=== PATIENT | male | born 1950 ===

== ENCOUNTER 2021-02-27 08:02 | Observation (INO) ==
[2021-02-27] MEDS ORDERED: Lactated Ringers 1000 ml BAG 1,000 ML IV ONE (08:59)
[2021-02-27 09:08] LABS: ABS Eosinophils 0.2 10^3/ul (0-0.6); ABS Lymphocytes 1.5 10^3/ul (1.0-4.8); ABS Monocytes 0.8 10^3/ul (0-0.8); ABS Neutrophils 5.6 10^3/ul (1.5-7.7); Eosinophil % 2.4 %; Hematocrit 28 % (42-52); Hemoglobin 9.5 g/dL (14.0-18.0); Lymphocyte % 18.3 %; Mean Corpuscular HGB Conc 34 g/dL (31-36); Mean Corpuscular Hemoglobin 33 pg (27-31); Mean Corpuscular Volume 99 fL (80-94); Mean Platelet Volume 9.1 fL (7.4-10.4); Nucleated Red Blood Cells % 0.2; Platelet Count 322 10^3/uL (150-450); Red Blood Count 2.87 10^6 /uL (4.18-5.48); Red Cell Distribution Width 14 % (10-15); White Blood Count 8.1 10^3/uL (3.5-10.8)
[2021-02-27 09:28] LABS: ALT 20 U/L (7-52); AST 24 U/L (13-39); Albumin 3.6 g/dL (3.2-5.2); Albumin/Globulin Ratio 1.2 (1-3); Alkaline Phosphatase 58 U/L (35-149); Anion Gap 8 mmol/L (2-11); Blood Urea Nitrogen 25 mg/dL (6-24); CO2 Carbon Dioxide 25 mmol/L (22-32); Calcium 8.5 mg/dL (8.6-10.3); Chloride 103 mmol/L (101-111); EGFR African American 92.1 (>60); EGFR Non-African American 76.1 (>60); Globulin 2.9 g/dL (2-4); Glucose 99 mg/dL (70-100); Potassium 3.7 mmol/L (3.5-5.0); Sodium 136 mmol/L (135-145); Total Protein 6.5 g/dL (6.4-8.9)
[2021-02-27] MEDS ORDERED: Iodixanol (CONTRAST) 320 MG/ML 100 ML SDV IV ONE (09:55)
[2021-02-27] MEDS ORDERED: Dextrose 50% Syringe 50 ml 25 GM/50 ML SYRINGE IV PUSH PRN (13:11)
[2021-02-27] MEDS ORDERED: Pantoprazole 80 mg in NS BAG 80 MG/250 ML BAG IV SCH ×2 (14:00→15:00)
[2021-02-27 16:03] LABS: % Iron Saturation 8 % (15-55); Iron 28 ug/dL (50-212); Total Iron Binding Capacity 335 mcg/dL (250-450); Transferrin 239 mg/dL (203-362); Unsaturated Iron Binding < 320 ug/dL
[2021-02-27 16:13] LABS: INR 1.06 (0.86-1.15)
[2021-02-27 16:22] LABS: Ferritin 141.7 ng/mL (24-336)
[2021-02-27] MEDS: Pantoprazole VIAL 40 MG VIAL IV SCH ×2 (16:32→22:43)
[2021-02-27] MEDS ORDERED: Pantoprazole VIAL 40 MG VIAL IV SCH (21:00)
[2021-02-28 05:31] LABS: ABS Basophils 0.1 10^3/ul (0-0.2); ABS Eosinophils 0.2 10^3/ul (0-0.6); ABS Lymphocytes 1.5 10^3/ul (1.0-4.8); ABS Monocytes 0.8 10^3/ul (0-0.8); ABS Neutrophils 4.6 10^3/ul (1.5-7.7); Eosinophil % 3.1 %; Hematocrit 27 % (42-52); Hemoglobin 9.1 g/dL (14.0-18.0); Lymphocyte % 20.6 %; Mean Corpuscular HGB Conc 34 g/dL (31-36); Mean Corpuscular Hemoglobin 33 pg (27-31); Mean Corpuscular Volume 99 fL (80-94); Nucleated Red Blood Cells % 0.1; Platelet Count 321 10^3/uL (150-450); Red Blood Count 2.74 10^6 /uL (4.18-5.48); Red Cell Distribution Width 14 % (10-15); White Blood Count 7.1 10^3/uL (3.5-10.8)
[2021-02-28 05:53] LABS: Calcium 8.1 mg/dL (8.6-10.3); EGFR African American 104.4 (>60); EGFR Non-African American 86.3 (>60); Potassium 3.7 mmol/L (3.5-5.0)
[2021-02-28] MEDS: Pantoprazole VIAL 40 MG VIAL IV SCH ×2 (08:50→21:19)
[2021-02-28] MEDS: NISOLDIPINE 17 MG PO SCH (11:04)
[2021-02-28 13:48] LABS: ABS Basophils 0.1 10^3/ul (0-0.2); ABS Eosinophils 0.2 10^3/ul (0-0.6); ABS Lymphocytes 1.8 10^3/ul (1.0-4.8); ABS Monocytes 0.7 10^3/ul (0-0.8); ABS Neutrophils 4.3 10^3/ul (1.5-7.7); Eosinophil % 2.7 %; Hematocrit 26 % (42-52); Hemoglobin 8.6 g/dL (14.0-18.0); Mean Corpuscular HGB Conc 34 g/dL (31-36); Mean Corpuscular Hemoglobin 33 pg (27-31); Mean Corpuscular Volume 99 fL (80-94); Mean Platelet Volume 8.9 fL (7.4-10.4); Nucleated Red Blood Cells % 0.1; Platelet Count 325 10^3/uL (150-450); Red Blood Count 2.58 10^6 /uL (4.18-5.48); Red Cell Distribution Width 14 % (10-15)
[2021-02-28 20:32] LABS: ABS Basophils 0.1 10^3/ul (0-0.2); ABS Eosinophils 0.3 10^3/ul (0-0.6); ABS Lymphocytes 1.9 10^3/ul (1.0-4.8); ABS Monocytes 0.7 10^3/ul (0-0.8); ABS Neutrophils 4.9 10^3/ul (1.5-7.7); Eosinophil % 3.4 %; Hematocrit 24 % (42-52); Hemoglobin 8.5 g/dL (14.0-18.0); Lymphocyte % 24.1 %; Mean Corpuscular HGB Conc 35 g/dL (31-36); Mean Corpuscular Hemoglobin 35 pg (27-31); Mean Corpuscular Volume 98 fL (80-94); Mean Platelet Volume 8.8 fL (7.4-10.4); Platelet Count 316 10^3/uL (150-450); Red Blood Count 2.45 10^6 /uL (4.18-5.48); Red Cell Distribution Width 14 % (10-15); White Blood Count 7.7 10^3/uL (3.5-10.8)
[2021-03-01 05:56] LABS: ABS Basophils 0.1 10^3/ul (0-0.2); ABS Eosinophils 0.3 10^3/ul (0-0.6); ABS Lymphocytes 1.8 10^3/ul (1.0-4.8); ABS Monocytes 0.8 10^3/ul (0-0.8); ABS Neutrophils 5.8 10^3/ul (1.5-7.7); Eosinophil % 3.3 %; Hematocrit 26 % (42-52); Hemoglobin 8.9 g/dL (14.0-18.0); Lymphocyte % 20.8 %; Mean Corpuscular HGB Conc 35 g/dL (31-36); Mean Corpuscular Hemoglobin 34 pg (27-31); Mean Corpuscular Volume 98 fL (80-94); Mean Platelet Volume 9.6 fL (7.4-10.4); Platelet Count 326 10^3/uL (150-450); Red Blood Count 2.62 10^6 /uL (4.18-5.48); Red Cell Distribution Width 14 % (10-15); White Blood Count 8.7 10^3/uL (3.5-10.8)
[2021-03-01 06:15] LABS: EGFR African American 101.7 (>60); Magnesium 1.7 mg/dL (1.9-2.7); Potassium 3.3 mmol/L (3.5-5.0)
[2021-03-01] MEDS ORDERED: Potassium Chlor 20 meq TAB.ER PO ONE (06:58)
[2021-03-01] MEDS ORDERED: Magnesium Sulfate 2 gm BAG 2 GM/50 ML BAG IVPB ONE (06:58)
[2021-03-01] MEDS: Pantoprazole VIAL 40 MG VIAL IV SCH (09:08)
[2021-03-01] MEDS: NISOLDIPINE 17 MG PO SCH (10:33)
[2021-03-01 11:07] VITALS: BP 141/67
[2021-03-04 15:48] LABS: Helicobacter pylori Result Not Detected; Specimen Source STOOL
== END 2021-03-01 17:15 | disposition home or self-care (01) ==
LOC: MED 08:02 → ED 08:02 → MED 13:37 → SUATTDRO 14:01 → AA 22:06 → MED 22:08
PROVIDERS: ADMIT Nurse Practitioner Family; ATTEND Internal Medicine